=== PATIENT | female | born 1990 | race African-American/Black ===

== ENCOUNTER 2020-08-18 19:59 | Emergency (ER) | payer OTHER ==
[~2020-08-18] VITALS: Ht 152.4 cm; Wt 56.2 kg
[2020-08-18 20:05] VITALS: BP 128/89
[2020-08-18] MEDS ORDERED: SPACERADULT INH (22:05)
[2020-08-18] MEDS ORDERED: PROAIR HFA8.5 GM INH (22:05)
[2020-08-18] MEDS ORDERED: PREDNISONE 20 M20 MG PO (22:10)
== END 2020-08-18 22:30 | disposition home or self-care (01) ==
LOC: ER 19:59
DX: J45.901 Unspecified asthma with (acute) exacerbation (principal); J02.9 Acute pharyngitis, unspecified; Z20.822 Contact with and (suspected) exposure to COVID-19; Z88.8 Allergy status to other drugs, medicaments and biological substances